=== PATIENT | male | born 1990 | race Hispanic/Latino ===

== ENCOUNTER 2024-03-06 23:58 | Emergency (ER) | payer SELFPAY ==
[2024-03-07] MEDS ORDERED: LIDOCAINE 1% 20 ML MDV ONE (00:18)
[2024-03-07] MEDS ORDERED: TDAP (DIPHTH,PERTUSS(ACELL),TET VAC) 0.5 ML VIAL IMVAC ONE (00:18)
--- NOTE | 2024-03-07 01:34 | ER ---
Nurse's Notes [facility] Name: Jono Garduno Age: 33 yrs Sex: Male : 1990 Arrival Date: 03/06/2024 Time: 23:58 Bed 2 Private MD: Diagnosis: Laceration without foreign body of right hand, initial encounter;Right index finger laceration, right palmar wrist laceration, right hand hypothenar eminence laceration. Presentation: 03/07 00:04 Chief complaint: EMS states: 33 year old male has a laceration on the right hand and ha1 right mid finger. pressure dressing applied to stop bleeding. Coronavirus screen: Vaccine status: Patient reports being unvaccinated. Ebola Screen: No symptoms or risks identified at this time. Initial Sepsis Screen: Does the patient meet any 2 criteria? No. Patient's initial sepsis screen is negative. Does the patient have a suspected source of infection? No. Patient's initial sepsis screen is negative. Risk Assessment: Do you want to hurt yourself or someone else? Patient reports no desire to harm self or others. Onset of symptoms was March 07, 2024. 00:04 Method Of Arrival: EMS: [facility] ha1 00:04 Acuity: FRIDA 4 ha1 Triage Assessment: 00:03 General: Appears uncomfortable, Behavior is calm, cooperative. Pain: Complains of pain ha1 in right hand Pain does not radiate. Pain currently is 7 out of 10 on a pain scale. Quality of pain is described as burning, aching. Neuro: Level of Consciousness is awake, alert, obeys commands, Oriented to person, place, time, situation. Cardiovascular: Capillary refill < 3 seconds Patient's skin is warm and dry. Respiratory: Airway is patent Respiratory effort is even, unlabored, Respiratory pattern is regular, symmetrical. GI: No signs and/or symptoms were reported involving the gastrointestinal system. Musculoskeletal: Circulation, motion, and sensation intact. Range of motion: intact in all extremities. Injury Description: Laceration sustained to palmar aspect of distal phalanx of right middle finger and palm of right hand is 7.6 to 20 cm long, bleeding moderately, a small amount of bleeding noted at this time. A dressing was applied. Historical: - Allergies: 00:09 No Known Allergies; ha1 - PMHx: 00:09 None; ha1 - Immunization history:: Adult Immunizations not up to date. - Infectious Disease History:: Denies. - Social history:: Smoking status: Patient denies any tobacco usage or history of. Patient uses alcohol, occasionally. Patient/guardian denies using street drugs. - Family history:: not pertinent. Screenin:12 [facility] ED Fall Risk Assessment (Adult) History of falling in the last 3 months, ha1 including since admission No falls in past 3 months (0 pts) Confusion or Disorientation No (0 pts) Intoxicated or Sedated No (0 pts) Impaired Gait No (0 pts) Mobility Assist Device Used No (0 pt) Altered Elimination No (0 pt) Score/Fall Risk Level 0 - 2 = Low Risk Oriented to surroundings, Maintained a safe environment, Educated pt \T\ family on fall prevention, incl call for assistance when getting out of bed, Hourly rounding (assess needs \T\ fall precautionary measures) done. Abuse screen: Denies threats or abuse. Denies injuries from another. Nutritional screening: No deficits noted. Tuberculosis screening: No symptoms or risk factors identified. Assessment: 00:30 General: See triage assessment. ha1 01:00 Reassessment: Patient appears in no apparent distress at this time. No changes from [facility] previously documented assessment. Patient and/or family updated on plan of care and expected duration. Pain level reassessed. Patient is alert, oriented x 3, equal unlabored respirations, skin warm/dry/pink. 01:45 Reassessment: Pt refused tetanus vaccine and sutures. vc1 01:47 Reassessment: Patient appears in no apparent distress at this time. No changes from [facility] previously documented assessment. Patient and/or family updated on plan of care and expected duration. Pain level reassessed. Patient is alert, oriented x 3, equal unlabored respirations, skin warm/dry/pink. Vital Signs: 00:04 BP 138 / 81; Pulse 120; Resp 15 S; Temp 98.2; Pulse Ox 98% on R/A; Weight 79.38 kg; ha1 Height 5 ft. 8 in. ; 01:00 BP 135 / 83; Pulse 109; Resp 15; Pulse Ox 97% ; vc1 00:04 Body Mass Index 26.61 (79.38 kg, 172.72 cm) 1 Ralph Coma Score: 04:33 Eye Response: spontaneous(4). Motor Response: obeys commands(6). Verbal Response: sp4 oriented(5). Total: 15. ED Course: 00:03 Patient arrived in ED. ha1 00:03 Patient has correct armband on for positive identification. Placed in gown. Bed in low ha1 position. Call light in reach. Side rails up X 1. police cadet at bedside. 00:09 Haroon Eagle MD is Attending Physician. sp4 01:46 Andree Marte RN is Primary Nurse. vc1 01:46 Primary Nurse role handed off by Andree Marte RN ha1 01:46 Italia Pompa RN is Primary Nurse. ha1 01:48 Triage completed. ha1 01:49 No provider procedures requiring assistance completed. Patient did not have IV access vc1 during this emergency room visit. 01:50 Provided Education on: Laceration should have sutures and return if he decides to have vc1 them placed. 01:51 Arm band placed on right wrist. vc1 Administered Medications: 01:35 Not Given (Patient Refused): boostrix tdap0.5 ml IM once; as a single dose vc1 01:35 Not Given (Patient Refused): lidocaine(1 %) 20 ml 20 ml Infiltration once; to bedside vc1 01:35 Not Given (Patient Refused): lidocaine(1 %) 20 ml 20 ml Infiltration once; to bedside vc1 Medication: 01:50 VIS not applicable for this client. vc1 Outcome: 01:33 Discharge ordered by . sp4 01:50 Discharged to Law Enforcement vc1 01:50 Condition: good 01:50 Discharge instructions given to patient, Instructed on discharge instructions, follow up and referral plans. wound care, Demonstrated understanding of instructions, follow-up care, wound care, 01:52 Patient left the ED. vc1 Signatures: Andree Matre RN RN vc1 Italia Pompa RN RN 1 Haroon Eagle MD MD sp4
--- NOTE | 2024-03-07 01:34 | EDPHYS ---
Physician Documentation [facility] Name: Jono Garduno Age: 33 yrs Sex: Male : 1990 Arrival Date: 03/06/2024 Time: 23:58 Bed 2 Private MD: ED Physician Haroon Eagle HPI: 03/07 00:09 This 33 yrs old Male presents to ER via Unassigned with complaints of sp4 laceration right hand . 04:33 33-year-old male presents with police escort with primary complaint of laceration to sp4 the right hand. Patient reportedly punched the glass causing laceration to the right hypothenar eminence additional laceration to right index finger and additional shallow laceration to right palmar wrist. No additional lacerations reported. Patient is intoxicated on arrival. . Historical: - Allergies: 00:09 No Known Allergies; ha1 - PMHx: 00:09 None; ha1 - Immunization history:: Adult Immunizations not up to date. - Infectious Disease History:: Denies. - Social history:: Smoking status: Patient denies any tobacco usage or history of. Patient uses alcohol, occasionally. Patient/guardian denies using street drugs. - Family history:: not pertinent. ROS: 04:33 Constitutional: Negative for fever, chills, and weight loss, positive for intoxication, sp4 positive for right hand lacerations 04:33 All other systems are negative, Exam: 04:33 Constitutional: This is a well developed, well nourished patient who is awake, alert, sp4 and in no acute distress. Head/Face: Normocephalic, atraumatic. Eyes: Pupils equal round and reactive to light, extra-ocular motions intact. Lids and lashes normal. Conjunctiva and sclera are not injected. Cornea within normal limits. Periorbital areas with no swelling, redness, or edema. ENT: Nares patent. No nasal discharge, no septal abnormalities noted. Tympanic membranes are normal and external auditory canals are clear. Oropharynx with no redness, swelling, or masses, exudates, or evidence of obstruction, uvula midline. Mucous membranes moist. Neck: Trachea midline, no thyromegaly or masses palpated, and no cervical lymphadenopathy. Supple, full range of motion without nuchal rigidity, or vertebral point tenderness. Chest/axilla: Normal chest wall appearance and motion. Nontender with no deformity. No lesions are appreciated. Cardiovascular: Regular rate and rhythm with a normal S1 and S2. No gallops, murmurs, or rubs. Normal PMI, no JVD. No pulse deficits. Respiratory: Lungs have equal breath sounds bilaterally, clear to auscultation and percussion. No rales, rhonchi or wheezes noted. No increased work of breathing, no retractions or nasal flaring. Abdomen/GI: Soft, with normal bowel sounds. No distension or tympany. No guarding or rebound. No evidence of tenderness throughout. Back: No spinal tenderness. No costovertebral tenderness. Skin: Warm, dry with normal turgor. Normal color with no rashes, no lesions, and no evidence of cellulitis. MS/ Extremity: Pulses equal, no cyanosis. Neurovascular intact. Full, normal range of motion. Positive for right hypothenar eminence laceration approximately 5 cm long no active bleeding. Positive for small laceration to right index finger right proximal interphalangeal joint surface 1 cm long , positive for small shallow laceration right wrist palmar surface 1.5 cm long. Neuro: Awake and alert, GCS 15, oriented to person, place, time, and situation. Cranial nerves II-XII grossly intact. Motor strength 5/5 in all extremities. Sensory grossly intact. Psych: Awake, alert, with orientation to person, place and time. Behavior, mood, and affect are within normal limits Vital Signs: 00:04 BP 138 / 81; Pulse 120; Resp 15 S; Temp 98.2; Pulse Ox 98% on R/A; Weight 79.38 kg; ha1 Height 5 ft. 8 in. ; 01:00 BP 135 / 83; Pulse 109; Resp 15; Pulse Ox 97% ; vc1 00:04 Body Mass Index 26.61 (79.38 kg, 172.72 cm) ha1 Clyo Coma Score: 04:33 Eye Response: spontaneous(4). Motor Response: obeys commands(6). Verbal Response: sp4 oriented(5). Total: 15. Procedures: 04:33 Performed Wound care right hand. Patient has refused laceration repair .. Right hand sp4 lacerations were irrigated heavily with saline and sterile dressing with Kerlix was applied. Patient has refused lacerations repair. MDM: 00:10 Patient medically screened. sp4 01:31 Data reviewed: vital signs, nurses notes. ED course: Has declined laceration repair. sp4 Patient states that he does not wish his lacerations to be repaired. Right hand hypothenar eminence laceration is about 5 to 6 cm long and we strongly advised to the patient to have the laceration repaired. Patient did consent for laceration washout and sterile dressing. Lacerations were washed irrigated and sterile dressing with Xeroform was applied. Patient stable to be discharged into the care of police. . 04:33 Differential Diagnosis altered mental status, sepsis, flu, laceration right hand . ED sp4 course: Patient was informed that if he changes his mind he should return to the emergency room for laceration repair.. 03/07 00:09 Order name: Dressing - Wound; Complete Time: 00:14 sp4 03/07 00:09 Order name: Gloves, Sterile; Complete Time: 00:14 sp4 03/07 00:09 Order name: Setup Suture Tray; Complete Time: 00:14 sp4 Administered Medications: 01:35 Not Given (Patient Refused): boostrix tdap0.5 ml IM once; as a single dose vc1 01:35 Not Given (Patient Refused): lidocaine(1 %) 20 ml 20 ml Infiltration once; to bedside vc1 01:35 Not Given (Patient Refused): lidocaine(1 %) 20 ml 20 ml Infiltration once; to bedside vc1 Disposition Summary: 03/07/24 01:33 Discharge Ordered Problem: new sp4 Symptoms: have improved sp4 Condition: Stable sp4 Diagnosis - Laceration without foreign body of right hand, initial encounter sp4 - Right index finger laceration, right palmar wrist laceration, right hand hypothenar sp4 eminence laceration. Followup: sp4 - With: Private Physician - When: 24 Hours - Reason: Recheck today's complaints Discharge Instructions: - Discharge Summary Sheet sp4 - Laceration Care, Adult sp4 Forms: - Patient Portal Instructions sp4 Signatures: Italia Pompa RN RN ha1 Haroon Eagle MD MD sp4 Andree Marte RN vc1
[2024-03-07 02:22] VITALS: BP 135/83; TEMP 98.2; O2SAT 97
== END 2024-03-07 01:52 | disposition home or self-care (01) ==
LOC: ER 23:58
DX: S61.210A Laceration without foreign body of right index finger without damage to nail, initial encounter (principal); S61.511A Laceration without foreign body of right wrist, initial encounter; S61.411A Laceration without foreign body of right hand, initial encounter; Z53.29 Procedure and treatment not carried out because of patient's decision for other reasons
CPT/HCPCS: J2001